=== PATIENT | male | born 1960 | race American Indian/Alaskan Native ===

== ENCOUNTER 2020-02-25 00:31 | Emergency (ER) | payer OTHER, SELFPAY ==
--- NOTE | ~2020-02-25 | XR_ITS ---
XR chest 2V DATE: 02/25/2020 01:48 INDICATION: Abdominal pain TECHNIQUE: 2 views COMPARISON: two-view chest FINDINGS: Low lung volumes with bibasilar atelectasis. Normal heart size. No hilar or mediastinal enlargement. No pleural effusion or pulmonary vascular con gestion or pneumothorax. IMPRESSION: Mild bibasilar atelectasis Reviewed, dictated and finalized at location A. IMPRESSION: Mild bibasilar atelectasis
--- NOTE | ~2020-02-25 | CT_ITS ---
EXAMINATION: CT abdomen pelvis w con DATE: 02/25/2020 01:49 INDICATION: Mid upper abdominal pain for 5 hours TECHNIQUE: Computed tomography (CT) of the abdomen and pelvis was performed with 100 cc Omnipaque 350 intravenous contrast. Automated exposure control and iterative reconstruction technique were employe d. Exam dose: 705.72 mGy-cm total exam DLP. COMPARISON: None. FINDINGS: There is mild discoid atelectasis in the lung bases. Normal heart size. No pericardial or p leural effusion. There is a small hepatic dome cyst. The liver, gallbladder, bile ducts, pancreas, pancreatic duct, sp wilmar, and adrenal glands and kidneys are otherwise unremarkable. Normal caliber of the abdominal aort a. No intraperitoneal or retroperitoneal or pelvic mass lesion or adenopathy or ascites. There is mil d to moderate prostate enlargement and mild prostate calcification. The urinary bladder is unremarkab le. There is nonspecific mild small bowel dilatation up to 3.4 cm, with numerous small bowel air-fluid le vels. There is fluid distention and air-fluid level of the stomach. Differential diagnosis includes s mall bowel obstruction and adynamic ileus, enteritis. Normal appendix. No intraperitoneal free air. Small fat-containing umbilical hernia. Included skeletal structures are unremarkable. No suspicious osteolytic or osteoblastic lesion. There is mild degenerative change of the thoracic and lumbar spine. IMPRESSION: Mild small bowel dilatation and air-fluid level; definitive diagnosis includes adynamic ileus, enteritis, small bowel obstruction Reviewed, dictated and finalized at Location A. Reviewed, dictated and finalized at location A. IMPRESSION: Mild small bowel dilatation and air-fluid level; definitive diagno sis includes adynamic ileus, enteritis, small bowel obstruction
[2020-02-25] MEDS: ONDANSETRON INJ 4 MG/2 ML VIAL IV PUSH (00:35)
[2020-02-25] MEDS: MORPHINE SULFATE 4 MG/ML INJ IV PUSH (00:45)
--- NOTE | 2020-02-25 00:46 | ECG_ITS ---
Measurements Intervals [place] Rate: 61 P: 32 MS: 153 QRS: 64 QRSD: 90 T: 57 QT: 404 QTc: 408 Interpretive Statements SINUS RHYTHM BASELINE ARTIFACT- I, II, AVR, AVL, AVF, V1, V3 NORMAL ECG Electronically Signed On 02-26-2020 7:23:41 CDT by Elpidio Gilbert D.O.
[2020-02-25 00:53] LABS: Basophils Absolute Auto 0.04 K/mm3 (0.00-0.10); Basophils Percent Auto 0.4 % (0.0-1.0); Eosinophils Absolute Auto 0.32 K/mm3 (0.02-0.50); Eosinophils Percent Auto 3.3 % (1.0-6.0); Hematocrit 48.5 % (40.0-54.0); Hemoglobin 16.9 g/dL (14.0-18.0); Immature Granulocyte Absolute 0.03 K/mm3 (0.00-0.00); Immature Granulocyte Percent A 0.3 % (0.0-0.0); Lymphocytes Absolute Auto 2.16 K/mm3 (1.10-4.50); Lymphocytes Percent Auto 22.6 % (18.0-42.0); Mean Corpuscular HGB Conc 34.8 g/dL (32.0-36.0); Mean Corpuscular Hemoglobin 30.4 pg (27.0-31.0); Mean Corpuscular Volume 87.2 fL (78.0-102.0); Mean Platelet Volume 9.1 fl (8.7-11.0); Monocytes Absolute Auto 0.64 K/mm3 (0.10-0.90); Monocytes Percent Auto 6.7 % (2.0-11.0); Neutrophils Absolute Auto 6.4 K/mm3 (1.7-7.2); Neutrophils Percent Auto 66.7 % (50.0-70.0); Platelet Count Result 228 K/mm3 (150-420); Red Blood Count 5.56 M/mm3 (4.70-6.10); Red Cell Distribution Width 12.9 % (11.6-14.4); White Blood Count 9.6 K/mm3 (4.8-10.8)
--- NOTE | 2020-02-25 01:01 | ED.GENADULT ---
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 the patient was walking it did go home he thought initially the pain would resolve but it did intensify. Patient denies chest pain, no shortness of breath, no fever or chills, there is no diarrhea constipation. Patient did have nausea with an episode of vomiting. Patient currently has some not taking any medication, does have a past medical history of gastritis and had endoscopy performed approximately 1 year ago. Onset (ago): hour(s) Location: abdomen Radiation: back Severity: severe Severity scale (1-10): >10 Quality: aching and constant Pain Consistency: constant Relieving factors: none Exacerbating factors: none Associated symptoms: nausea/vomiting Treatments prior to arrival: none Related Data Home Medications Medication Instructions Recorded Confirmed No Home Medications 02/25/20 02/25/20 Allergies Allergy/AdvReac Type Severity Reaction Status Date / Time Sulfa (Sulfonamide AdvReac Unknown Verified 02/25/20 00:55 Antibiotics) Review of Systems Review of Systems: All systems reviewed & are unremarkable except as noted in HPI and below PMFSH Past Medical History Medical History Gastritis Exam Const: General: ill appearing Nutritional Appearance: well nourished HENMT: Head: normal to inspection Eyes: Conjunctivae: conjunctivae normal Pupils: Equal, round and reactive pupils present Neck: Neck: normal visual inspection Chest: Chest palpation & inspection: normal inspection of the chest Resp: Effort & Inspection: normal respiratory effort Auscultation: clear to auscultation bilaterally Cardio: Rate: regular rate Rhythm: regular rhythm GI: GI Palp: Yes Tenderness to palpation present (GI) and Yes Guarding due to palpation present (GI) Percussion: Yes normal to percussion Auscultation: Hyperactive bowel sounds present : Testes: Testes normal Skin: General skin exam: normal color Rashes: no rashes Neuro: General: patient oriented x3, moves all extremities, no meningeal signs and no focal motor deficits Extrem: General: normal to inspection and edema Psych: Appearance: grossly normal Mental Status: mental status grossly normal Thought content: Yes Normal thought content present Course Course Emergency Course: reassessment of patient's currently is comfortable pain level has some diminished to a 3/10 currently resting comfortably with mild abdominal discomfort with no nausea vomiting at this time. Patient is resting comfortably with some abdominal pain diminished to 3/10 with no nausea or vomiting and patient declined NG tube at this time. Transfer Transfered to: [facility] Transfer rationale: Higher level of acuity Accepting physician: Dr. Reyna Medical Decision Making Medical Records Medical records reviewed: Yes I reviewed the patient's medical records. Lab Data Lab results reviewed: Yes I reviewed the patient's lab results. Result diagrams: 02/25/20 00:46 02/25/20 00:46 Labs: Lab Results 02/25/20 02/25/20 Range/Units 00:46 00:46 WBC 9.6 (4.8-10.8) K/mm3 RBC 5.56 (4.70-6.10) M/mm3 Hgb 16.9 (14.0-18.0) g/dL Hct 48.5 (40.0-54.0) % MCV 87.2 (78.0-102.0) fL MCH 30.4 (27.0-31.0) pg MCHC 34.8 (32.0-36.0) g/dL RDW 12.9 (11.6-14.4) % Plt Count 228 (150-420) K/mm3 MPV 9.1 (8.7-11.0) fl Immature Gran % (Auto) 0.3 H (0.0-0.0) % Neut % (Auto) 66.7 (50.0-70.0) % Lymph % (Auto) 22.6 (18.0-42.0) % Thayer % (Auto) 6.7 (2.0-11.0) % Eos % (Auto) 3.3 (1.0-6.0) % Baso % (Auto) 0.4
[2020-02-25 01:09] LABS: Alanine Aminotransferase 33 U/L (16-63); Albumin Level 4.5 g/dL (3.4-5.0); Alkaline Phosphatase 64 U/L (46-116); Anion Gap 14.2 mmol/L (7-16); Aspartate Amino Transferase 29 U/L (15-37); Bilirubin,Total 0.8 mg/dL (0.00-1.00); Blood Urea Nitrogen 15 mg/dL (7-18); Calcium 9.7 mg/dL (8.5-10.1); Carbon Dioxide 32 mmol/L (21-32); Chloride 100 mmol/L (98-108); Estimated Glomerular Filt Rate > 60; Glucose 150 mg/dL (70-99); Lipase 95 U/L (73-393); Osmolality Calculated 297 mOsm/kg (285-295); Potassium 4.2 mmol/L (3.5-5.1); Sodium 142 mmol/L (136-145); Total Protein 7.8 g/dL (6.4-8.2)
[2020-02-25 01:10] LABS: Troponin I < 0.02 ng/mL (0.00-0.056)
[2020-02-25] MEDS: PANTOPRAZOLE SODIUM IV 40 MG VIAL IV PUSH (01:10)
[2020-02-25] MEDS: HYDROMORPHONE HCL 2 MG/ML VIAL IV PUSH (01:16)
[2020-02-25 01:19] VITALS: BP 109/65; PULSE 75; RESP 18; TEMP 36.5; O2SAT 97
[2020-02-25 01:36] LABS: Lactic Acid 2.8 mmol/L (0.4-2.0)
--- NOTE | 2020-02-25 01:48 | PC.NURSE ---
ERP DISCUSSING PLAN OF CARE WITH PATIENT. 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 AWAITING CALL BACK
[2020-02-25 01:57] VITALS: BP 132/76; PULSE 63; RESP 20; TEMP 36.5; O2SAT 98
[2020-02-25] MEDS: SODIUM CHLORIDE 0.9% IV 1,000 ML 150 ML IV CONT (02:10)
--- NOTE | 2020-02-25 02:26 | PC.NURSE ---
ERP SPEAKING WITH DR LOPEZ AT [facility].
--- NOTE | 2020-02-25 02:29 | PC.NURSE ---
PT ACCEPTED PER DR LOPEZ, AWAITING BED PLACEMENT
[2020-02-25 02:48] VITALS: BP 115/61; PULSE 60; RESP 20; TEMP 36.5; O2SAT 94
--- NOTE | 2020-02-25 02:54 | PC.NURSE ---
CALL TO [facility], UNAVAILABLE FOR TRANSFER DUE TO NO CREW AVAILABLE, PER ARLENE. CALL TO [facility] AWAITING ARRIVAL.
[2020-02-25 03:12] LABS: Add Urine Microscopic? NO; Appearance Urine Clear (Clear); Bilirubin Urine Negative (Negative); Blood Urine Negative (Negative); Color Urine Yellow (Yellow); Glucose Urine UA Negative (Negative); Ketones Urine Negative (Negative); Leukocyte Esterase Ur Negative LEU/UL (Negative); Nitrate Urine Negative (Negative); Protein Urine Negative (Negative); Specific Grav Ur <= 1.005 (1.010-1.020); Urobilinogen Urine 0.2 mg/dL (0.2-1.0); pH Urine >=9.0 (5.0-8.0)
--- NOTE | 2020-02-25 03:26 | PCDIET ---
0315 [facility] HERE , REPORT TO Gerry AND MIGUEL. PT LOADED TO EMS COT, MASK APPLIED, PT REMAINS ALERT AND STABLE.
== END 2020-02-25 03:27 | disposition short-term general hospital (02) ==
PROVIDERS: Emergency Provider Emergency Medicine; PCP Internal Medicine
DX: K56.609 Unspecified intestinal obstruction, unspecified as to partial versus complete obstruction (principal)
CPT/HCPCS: 36415; 71046; 74177; 80053; 81003; 83605; 83690; 84484; 85025; 93005; 96365; 96375; 99284; 99285; C9113; J0696; J1170; J2270; J2405; J7030; Q9965

== ENCOUNTER 2020-02-25 03:58 | Inpatient (IN) | payer OTHER, SELFPAY ==
--- NOTE | ~2020-02-25 | XR_ITS ---
XR abdomen/kub 1V DATE: 02/25/2020 08:31 INDICATION: Abdominal pain. Bowel obstruction. TECHNIQUE: Supine AP views on 02/25/2020 0817 hours COMPARISON: 02/25/2020 CT abdomen pelvis FINDINGS: No abnormal distention of the small or large bowel is noted. There is no evacuation of the bowel. No visceromegaly is evident. No significant abnormal calcification. Radiopaque contrast materi al is noted within the urinary bladder. Minimal degenerative changes of the thoracic and lumbar spine. IMPRESSION: Nonspecific abdomen; no bowel obstruction evident Reviewed, dictated and finalized at Location A. Reviewed, dictated and finalized at location A.
--- NOTE | 2020-02-25 04:26 | ADMGEN ---
This patient, Yenifer Domínguez, was admitted to 2 Medical Room 244-. Patient/family oriented to hospital policies and general routines including ID bracelet, bed and alarms, visiting hours, pain management, procedures, bathroom and other care routines, personal items, smoking policy, room service/diet, and visiting hours. Valuables list has been completed. Information on how to activate the Rapid Response Team has been discussed. Patient/Family are encouraged to report perceived risks to care and to ask questions if they do not understand what they are told or what they should do. Pt came to floor at 0400. Placed call to Dr. Reyna to receive his admission orders
[2020-02-25 04:31] VITALS: BP 117/88; PULSE 54; RESP 20; TEMP 36.4; O2SAT 98
[2020-02-25] MEDS: SODIUM CHLORIDE 0.9% IV 1,000 ML 150 ML IV CONT ×2 (05:54→12:10)
--- NOTE | 2020-02-25 09:32 | PM.IMHP ---
H&P: HPI History of Present Illness Chief complaint: small bowel obstruction Narrative: Yenifer Domínguez is a 59 year old male that presented to the emergency department complaining of severe abdominal pain. Patient reports the pain was diffuse in nature, located more in the epigastric and right abdomen. Patient reports pain started out as moderate, however progressed to severe throughout the day yesterday. Patient reports associated distention, nausea, and bilious emesis. Patient reports he had a normal bowel movement yesterday morning. Patient denies any previous episodes, denies any past medical or surgical history. Patient had EGD and colonoscopy 6 months ago that showed some gastritis. Review of Systems Constitutional: Constitutional: Denies anorexia, Denies chills, Denies fatigue, Denies headache(s), Denies malaise, Denies poor appetite, Denies weight gain and Denies weight loss Eyes: Eyes: Denies change in vision ENT: Denies headache(s), Denies hearing loss and Denies sore throat Cardiovascular: Cardiovascular: Denies chest pain, Denies palpitations and Denies dyspnea Respiratory: Respiratory: Denies cough and Denies dyspnea Gastrointestinal: Gastrointestinal: Reports abdominal pain, Reports bloating, Denies change in stool character, Denies constipation, Denies diarrhea, Reports nausea and Reports vomiting Genitourinary: Genitourinary: Denies dysuria, Denies urinary frequency and Denies urinary urgency Musculoskeletal: Musculoskeletal: Reports no additional musculoskeletal complaints Integumentary/Breasts: Skin/Breast: Denies pruritus, Denies lesions and Denies wounds Neurologic: Denies confusion and Denies headache(s) Psychiatric: Psychiatric: Reports no additional psychiatric complaints and Denies confusion Endocrine: Endocrine: Reports no additional endocrine complaints, Denies fatigue and Denies palpitations Hematologic/Lymphatic: Hematologic/Lymphatic: Reports no additional hematologic/lymphatic complaints Allergic/Immunologic: Allergic/Immunologic: Reports no additional allergic/immunologic complaints [facility] Social History Social History (Updated 02/25/20 @ 05:05 by Rita Rodriguez RN) Smoking status: Never smoker Alcohol intake: unknown Drinks per week: 1 Substance use: current Substance use type: does not use Gender identity (if verbalized by the patient): Male Spiritual care concerns: No Agree to blood products: Yes Meds Home Medications and Allergies Home Medications Medication Instructions Recorded Confirmed Type No Home Medications 02/25/20 02/25/20 History Allergies Allergy/AdvReac Type Severity Reaction Status Date / Time Sulfa (Sulfonamide AdvReac Unknown Verified 02/25/20 00:55 Antibiotics) Vital Signs Vital Signs - 24 hr 02/25/20 04:31 Temperature 36.4 C L Pulse Rate 54 L Respiratory Rate 20 Blood Pressure 117/88 Pulse Oximetry 98 Exam Const: General: cooperative, healthy appearing, no acute distress and well developed; No confusion Orientation/consciousness: patient oriented x3 and No confusion HENMT: Head: normal to inspection, normocephalic and atraumatic Mouth: Yes Normal oral and palatal mucosa present and Yes moist mucous membranes Teeth and gingiva: dentition normal Eyes: Conjunctivae: conjunctivae normal Pupils: Equal, round and reactive pupils present EOM: EOMs intact bilaterally Neck: Neck: normal visual inspection, full ROM, no lymphadenopathy, trachea midline and supple Lymphatic: no lymphadenopathy noted Chest: Chest palpation & inspection: normal inspection of the chest Resp: Effort & Inspection: normal respiratory effort Auscultation: clear to auscultation bilaterally Cardio: Jugular venous distension: no JVD Rate: regular rate Rhythm: regular rhythm Heart sounds: S1 normal heart sound present and S2 normal heart sound present Peripheral pulses: Peripheral pulses 2+ throughout GI: Inspection: normal to inspectio
[2020-02-25 14:00] VITALS: BP 101/57; PULSE 57; RESP 18; TEMP 36.7; O2SAT 98
[2020-02-25 15:14] VITALS: BMI 31.5
[2020-02-25] MEDS: PANTOPRAZOLE 40 MG TABLET PO (18:45)
--- NOTE | 2020-02-27 11:12 | PM.DS ---
DS: Diagnosis Discharge Diagnosis (1) Enteritis: Code(s): K52.9 - Noninfective gastroenteritis and colitis, unspecified Status: Acute Assessment and Plan: exam benign, anu diet, cont bland diet at home, followup c GI and primary physician, f/u c me in 2 wks (2) Gastritis: Code(s): K29.70 - Gastritis, unspecified, without bleeding Status: Chronic Assessment and Plan: cont PPI as per GI, will likely need rescope, avoid caffeine, NSaids DS: Summary Hospital Course Reason for hospitalization: enteritis, SBO Hospital Course: Pt presented to hospital c/o severe, diffuse abd pain over last 6 hours. Pt reports pain was progressively worsening. Pt reports associated N/V, obstipation. Pt had BM in at the morning, but no further bowel fxn. Pt denies any other c/o. CT at ED showed poss SBO so pt transferred here and admitted. Pt reports pain slowly resolved and had normal bowel fxn the next day. Pt was started on diet which he anu s issue. Pt did not require any further analgesia. Pt received PPI in hospital and advised to cont upon dc. Status at Discharge Functional status at discharge: independent ambulation Overall status at discharge: patient is back to baseline Time Spent with Patient Time attestation: Total time spent providing and/or coordinating discharge services: 20 minutes Time spent: Less than 30 minutes Exam Const: General: no acute distress Resp: Auscultation: clear to auscultation bilaterally Cardio: Rate: regular rate Rhythm: regular rhythm GI: Inspection: non-distended GI Palp: Yes Soft to palpation, No Tenderness to palpation present (GI), No Guarding due to palpation present (GI) and No Hernia present DS: Data Data Completed and Pending Completed studies during hospitalization: CT scan and subsequent AXR reviewed c radiologist Discharge Plan Discharge Attending physician on discharge: Linda Reyna Discharging Clinician: Linda Reyna Anticipated Discharge Date/Time: 02/25/20 18:15 Patient Disposition: Home, Self-Care Activity: as tolerated Diet: as tolerated Discharge Instructions: stay on bland diet, PPI Patient Instructions: Antibiotic Form, Pain Management (GEN) Stand Alone Forms: General Discharge Information Follow-up/Referrals: Linda Reyna MD [Physician] - 2 Weeks Discharge Medications: No Action No Home Medications RF: 0 Date of admission: 02/25/20 03:58 Primary Care Provider: Mynor Marroquin Admitting Provider: Linda Reyna Discharge Date/Time: 02/25/20 18:54 Attending physician on admission: Linda Reyna Condition: Stable Quality VTE Prophylaxis VTE prophylaxis: mechanical ordered
== END 2020-02-25 18:54 | disposition home or self-care (01) | DRG 392 ==
PROVIDERS: Admitting Provider Surgery; PCP Internal Medicine; Visit Provider Surgery
DX: K52.9 Noninfective gastroenteritis and colitis, unspecified (principal); K29.50 Unspecified chronic gastritis without bleeding
CPT/HCPCS: 74018; A9270; J7030

== ENCOUNTER 2020-05-13 11:48 | Outpatient (CLI) | payer OTHER, SELFPAY ==
--- NOTE | ~2020-05-13 | XR_ITS ---
XR_CERV2-3V_CR DATE: 05/13/2020 12:22 INDICATION: Neck pain radiating down left arm, shoulder following lifting injury 2 months ago TECHNIQUE: AP, open-mouth, lateral views COMPARISON: None FINDINGS: There is reversal of cervical curvature. There is moderate loss of interspace height and mild spurring at C5-6 and C6-7. There is minimal anterolisthesis at C4-5. There is no fracture or dislocation or locked facet or prevertebral soft tissue swelling. IMPRESSION: Reversal cervical curvature Minimal anterolisthesis at C4-5 Moderate degenerative disc disease at C5-6 and C6-7 Reviewed, dictated and finalized at Location A. Reviewed, dictated and finalized at location A.
--- NOTE | ~2020-05-13 | XR_ITS ---
XR shoulder LT min 2V DATE: 05/13/2020 12:22 INDICATION: Neck pain radiating to left arm and left shoulder; lifting injury 2 months ago TECHNIQUE: 4 views COMPARISON: None FINDINGS: No fracture or dislocation, periosteal reaction or bone destruction or abnormal left should er soft tissue calcification. IMPRESSION: Negative Reviewed, dictated and finalized at location A. IMPRESSION: Negative
== END 2020-05-13 11:49 | disposition home or self-care (01) ==
PROVIDERS: PCP Internal Medicine; Visit Provider Internal Medicine
DX: M54.2 Cervicalgia (principal); M25.512 Pain in left shoulder
CPT/HCPCS: 72040; 73030

== ENCOUNTER 2020-05-14 16:50 | Outpatient (RCR) | payer OTHER, SELFPAY ==
--- NOTE | 2020-05-21 21:11 | PTOPEVAL ---
Thank you for referring Yenifer Domínguez to [facility]. Please review, sign, date and return this plan of care LUCIUS. I agree with and certify that the following plan of care is medically necessary. Referring Physician Date Admitting Provider: Attending Provider: Mynor Marroquin MD Referring Provider: *PT Outpatient Evaluation Start: 05/14/20 16:57 Freq: Status: Active Protocol: Document 05/14/20 17:00 [facility] (Rec: 05/21/20 21:03 [facility] ANGELINE-[id number]) Therapy Assessment Status Assessment Status Assessment Status Evaluation Outpatient Past Medical History Neurological History Hx Neurological Disorders No Significant History Cardiovascular History Hx Cardiac Disorders No Significant History Respiratory History Hx Respiratory Disorders No Significant History Gastrointestinal History Hx Ulcer Yes Hx Other Gastrointestinal Disorders Yes: gastritis Genitourinary History Hx Genitourinary Disorders No Significant History Musculoskeletal History Hx Orthopedic Surgery Yes: LEFT ANKLE WITH PLATE Hematological History Hx Hematological Disorders No Significant History Endocrine History Hx Endocrine Disorders No Significant History HEENT History Hx HEENT Disorders No Significant History Integumentary History Hx Skin Disorders No Significant History Reproductive History Hx Reproductive Disorders No Significant History Psychosocial History Hx Psychiatric Disorders No Significant History Pain History History of Any Previous or Ongoing No Significant History Instance of Pain Anesthesia History Hx Anesthesia Reactions No Significant History Evaluation Information Problem Diagnosis L shoulder pain Subjective Information patient reports he injured his Query Text:As Reported By Patient/ L shoulder over a month ago Family while working on his lawn. he reports his mower was stuck in the yard several times. he reports he was pulling hard to get his mower out, and days later began noticing pain and tightness in the L shoulder. he reports he has tried no medications as of this date. he reports he is having difficulty reaching behind his back. he reports he is also having difficulty sleeping at night/staying asleep due to pain. Prior Level of Function Comments Additional Prior Level of Function prior to injury, no Comments
== END 2020-08-12 23:59 | disposition home or self-care (01) ==
LOC: CHSPT 16:50
PROVIDERS: PCP Internal Medicine; Visit Provider Internal Medicine
DX: M25.512 Pain in left shoulder (principal); M54.2 Cervicalgia
CPT/HCPCS: 99199

== ENCOUNTER 2020-07-16 15:42 | Outpatient (CLI) | payer OTHER, SELFPAY ==
--- NOTE | ~2020-07-16 | MR_ITS ---
EXAMINATION: MR brain/brain stem wo con DATE: 07/16/2020 16:42 INDICATION: 3 days of dizziness, vertigo and ataxia. TECHNIQUE: Magnetic resonance imaging (MRI) of the brain and brainstem was performed without intraven ous contrast. Sequences included sagittal and axial T1-weighted SE, axial diffusion-weighted FS SE, a xial T2*-weighted GRE, axial T2-weighted FLAIR, and axial T2-weighted FSE. Postcontrast axial and cor onal T1-weighted SE was obtained. Apparent diffusion coefficient (ADC) maps were created. COMPARISON: None. FINDINGS: There are no areas of restricted diffusion to suggest acute infarction. No intracranial hemorrhage or abnormal intracranial mass lesion. Few tiny scattered foci of nonspecific increased T2-weighted sign al intensity in the cerebral white matter, predominantly involving the deep and periventricular white matter which is within normal limits for age. There are no intraparenchymal signal abnormalities see n on the other pulse sequences. The ventricles are symmetric and normal in size. There are no abnorma l extra-axial fluid collections. Flow voids are seen in the cerebral arteries on the T2-weighted sequ ences consistent with their expected patency. Mild mucoperiosteal thickening the bilateral ethmoid si nuses and small mucous retention cyst along the floor of the right maxillary sinus. No evident fluid in the mastoid air cells or middle ear cavities. Visualized orbits and soft tissues are unremarkable. IMPRESSION: 1. Normal for age brain with no acute intracranial process. Reviewed, dictated and finalized at location A.
== END 2020-07-16 15:43 | disposition home or self-care (01) ==
PROVIDERS: PCP Internal Medicine; Visit Provider Internal Medicine
DX: R27.0 Ataxia, unspecified (principal)
CPT/HCPCS: 70551

== ENCOUNTER 2021-02-23 20:05 | Outpatient (CLI) | payer OTHER, SELFPAY ==
--- NOTE | ~2021-02-23 | XR_ITS ---
EXAMINATION: XR foot LT min 3V DATE: 02/23/2021 20:30 INDICATION: Left foot injury. Left great toe pain. TECHNIQUE: 5 views of left foot were obtained. COMPARISON: None. FINDINGS: There is a comminuted intra-articular fracture of first distal phalanx. There is up to 1 mm step-off at the articular surface. There is mild osteoarthritis of first metatarsophalangeal joint a nd some of the midfoot joints. There is plate and screw fixation of distal femur. There are enthesoph ytes at the posterior and plantar aspects of calcaneal tuberosity. IMPRESSION: 1. Comminuted fracture of first distal phalanx. Reviewed, dictated and finalized at location A.
== END 2021-02-23 20:06 | disposition home or self-care (01) ==
LOC: CHSIMG 20:09
PROVIDERS: PCP Internal Medicine; Visit Provider Internal Medicine
DX: S99.922A Unspecified injury of left foot, initial encounter (principal)
CPT/HCPCS: 73630

== ENCOUNTER 2021-03-02 17:15 | Outpatient (CLI) | payer OTHER, SELFPAY ==
--- NOTE | ~2021-03-02 | XR_ITS ---
EXAMINATION: XR foot LT min 3V DATE: 03/02/2021 17:59 INDICATION: Left foot pain, first toe fracture follow-up TECHNIQUE: Dorsoplantar, lateral, and 2 oblique views of the left foot were obtained. A lateral view of the first toe is also obtained. COMPARISON: 02/23/2021 FINDINGS: Again seen is a comminuted intra-articular fracture of the first distal phalanx. A dorsal f racture fragment demonstrates minimal dorsal subluxation and proximal retraction on the lateral view. No appreciable calcified callus has developed. There is soft tissue swelling of the first toe. Mild osteoarthritis is present at the first metatarsophalangeal joint. Dorsal and plantar calcaneal enthes ophytes are noted. Plate and screw fixation of the distal fibula is again noted. IMPRESSION: 1. Comminuted intra-articular fracture of the first distal phalanx without significant interval youssef e. Reviewed, dictated and finalized at location A. IMPRESSION: 1. Comminuted intra-articular fracture of the first distal phalanx without sign ificant interval change.
== END 2021-03-02 17:16 | disposition home or self-care (01) ==
LOC: CHSIMG 17:18
PROVIDERS: PCP Internal Medicine; Visit Provider Orthopaedic Surgery
DX: M79.672 Pain in left foot (principal)
CPT/HCPCS: 73630

== ENCOUNTER 2021-03-16 17:53 | Outpatient (CLI) | payer OTHER, SELFPAY ==
--- NOTE | ~2021-03-16 | XR_ITS ---
XR foot LT min 3V 03/16/2021 19:14 Indication: Left foot pain Procedure: 5 views of the left foot Comparison: Comparison to multiple prior studies sequentially, with oldest reviewed study dated 01/2012. Findings: There is a distal fibular sideplate and screws. There is a healing fracture of the left fir st distal phalanx. The fracture line is less distinct than on prior examination. A dorsal fragment de monstrates mild dorsal subluxation on the lateral view. There is mild soft tissue swelling. Impression: 1: Stable alignment of healing comminuted intra-articular fracture left first distal phalanx. Reviewed, dictated and finalized at location A. Impression: 1: Stable alignment of healing comminuted intra-articular fracture left first d istal phalanx.
== END 2021-03-16 17:54 | disposition home or self-care (01) ==
LOC: CHSIMG 17:57
PROVIDERS: PCP Internal Medicine; Visit Provider Orthopaedic Surgery
DX: M79.672 Pain in left foot (principal)
CPT/HCPCS: 73630

== ENCOUNTER 2021-09-28 09:23 | Outpatient (CLI) | payer OTHER, SELFPAY ==
[2021-09-28 10:47] LABS: SARS-CoV-2 RNA PCR Negative (Negative)
== END 2021-09-28 09:24 | disposition home or self-care (01) ==
PROVIDERS: PCP Internal Medicine; Visit Provider Internal Medicine
DX: Z20.822 Contact with and (suspected) exposure to COVID-19 (principal)
CPT/HCPCS: C9803; U0003; U0005

== ENCOUNTER 2023-01-01 11:23 | Outpatient (CLI) | payer BC, SELFPAY ==
--- NOTE | ~2023-01-01 | US_ITS ---
EXAMINATION: US retroperitoneal comp DATE: 01/01/2023 12:01 INDICATION: Left flank pain. TECHNIQUE: Multiple ultrasound grayscale images of the kidneys were obtained. COMPARISON: CT abdomen and pelvis 02/25/2020 FINDINGS: The right kidney measures 10.7 x 5.3 x 4.6 cm. The left kidney measures 11.2 x 6.5 x 4.7 cm. The kidn eys demonstrate normal parenchymal echogenicity. There is no hydronephrosis. The bladder is normal. T he prostate is mildly enlarged. IMPRESSION: 1. Normal kidneys. No hydronephrosis. 2. Mildly enlarged prostate. Reviewed, dictated and finalized at location A. RAMMER
--- NOTE | ~2023-01-01 | US_ITS ---
EXAMINATION: US scrotum doppler DATE: 01/01/2023 11:59 INDICATION: Left flank pain radiating to the scrotum. TECHNIQUE: Grayscale and Doppler ultrasound images of the testes were obtained. COMPARISON: None. FINDINGS: The right testis measures 4.2 x 3.5 x 2.4 cm. The left testis measures 4.3 x 3.0 x 2.6 cm. There is normal vascular flow to both testes. The right epididymis is normal with normal vascular connie w. The left epididymis demonstrates a 2.9 cm cyst. There is no varicocele or hydrocele. IMPRESSION: 1. 2.9 cm benign cyst in the left epididymis. Reviewed, dictated and finalized at location A. [employer]
== END 2023-01-01 11:24 | disposition home or self-care (01) ==
PROVIDERS: PCP Internal Medicine; Visit Provider Internal Medicine
DX: R10.9 Unspecified abdominal pain (principal); N50.3 Cyst of epididymis; N40.0 Benign prostatic hyperplasia without lower urinary tract symptoms
CPT/HCPCS: 76770; 76870; 93976

== ENCOUNTER 2024-05-26 11:32 | Outpatient (CLI) | payer BC, SELFPAY ==
--- NOTE | ~2024-05-26 | XR_ITS ---
XR chest 2V Ordering provider: Yenifer Domínguez MD History: 63 years Male with . cough/dyspnea/wheezing x1 month . Comparison: February 25, 2020 FINDINGS: MEDIASTINUM: The cardiac silhouette is not enlarged. LUNGS: No infiltrates, effusions or pneumothorax. OTHER: No free air under the diaphragm. Degenerative changes of the spine. IMPRESSION: No acute cardiopulmonary pathology. Reviewed, dictated and finalized at location A.
[2024-05-26 12:15] LABS: Hematocrit 46.6 % (40.0-54.0); Hemoglobin 15.8 g/dL (14.0-18.0); Mean Corpuscular HGB Conc 33.9 g/dL (32-36); Mean Corpuscular Hemoglobin 29.8 pg (27.0-31.0); Mean Corpuscular Volume 87.9 fL (78.0-102.0); Mean Platelet Volume 9.1 fl (8.7-11.0); Platelet Count Result 218 K/mm3 (150-420); Red Cell Distribution Width 13.6 % (11.6-14.4); White Blood Count 4.7 K/mm3 (4.8-10.8)
[2024-05-26 12:31] LABS: D Dimer 0.26 mg/L (0.19-0.50)
[2024-05-26 13:03] LABS: Alanine Aminotransferase 35 U/L (16-63); Albumin Level 4.1 g/dL (3.4-5.0); Alkaline Phosphatase 56 U/L (46-116); Anion Gap 7 mmol/L (4-12); Aspartate Amino Transferase 24 U/L (15-37); Bilirubin,Total 0.7 mg/dL (0.00-1.00); Blood Urea Nitrogen 10 mg/dL (7-18); Calcium 9.3 mg/dL (8.5-10.1); Carbon Dioxide 29 mmol/L (21-32); Chloride 103 mmol/L (98-108); Estimated Glomerular Filt Rate > 60; Glucose 99 mg/dL (70-99); NT Pro B Type Natriuretic Pept 40 pg/mL (0-125); Osmolality Calculated 287 mOsm/kg (285-295); Potassium 4.3 mmol/L (3.5-5.1); Sodium 139 mmol/L (136-145); Total Protein 7.3 g/dL (6.4-8.2)
[2024-05-29 16:53] LABS: Immunoglobulin E 199 kU/L (<OR=114)
[2024-05-30 16:54] LABS: NIL 0.02 IU/mL; Quantiferon TB Plus, 1T NEGATIVE (NEGATIVE); TB1-NIL 0.11 IU/mL; TB2-NIL 0.04 IU/mL
== END 2024-05-26 11:33 | disposition home or self-care (01) ==
PROVIDERS: PCP Internal Medicine; Visit Provider Internal Medicine
DX: R05.9 Cough, unspecified (principal); R06.00 Dyspnea, unspecified
CPT/HCPCS: 36415; 71046; 80053; 82785; 83880; 85027; 85380; 86480

== ENCOUNTER 2024-06-12 11:06 | Outpatient (CLI) | payer BC, SELFPAY | END 2024-06-12 11:07 | disposition home or self-care (01) | LOC: CHSCARD 11:07 | PROVIDERS: PCP Internal Medicine; Visit Provider Internal Medicine | DX: R05.9 Cough, unspecified (principal); R06.02 Shortness of breath | CPT/HCPCS: 94060; 94726; 94729 ==

== ENCOUNTER 2024-08-31 17:19 | Outpatient (CLI) | payer BC, SELFPAY ==
--- NOTE | ~2024-08-31 | XR_ITS ---
XR chest 2V Ordering provider: Mynor Marroquin MD History: 64 years Male with . COUGH FOR 4 WEEKS . Comparison: May 26, 2024 FINDINGS: MEDIASTINUM: The cardiac silhouette is not enlarged. LUNGS: No effusions or pneumothorax. Focal opacity seen in the left lower lobe adjacent to the left c ardiac border which may be focal pneumonia. Follow-up advised. Prominent markings seen bilaterally in the lower lobes. OTHER: No free air under the diaphragm. IMPRESSION: Possible focal pneumonia in the left lower lobe adjacent to the cardiac border. Follow-up advised. Reviewed, dictated and finalized at location A.
== END 2024-08-31 17:20 | disposition home or self-care (01) ==
LOC: CHSIMG 17:20
PROVIDERS: PCP Internal Medicine; Visit Provider Internal Medicine
DX: R05.9 Cough, unspecified (principal)
CPT/HCPCS: 71046

== ENCOUNTER 2024-09-25 05:17 | Emergency (ER) | payer BC, SELFPAY ==
[2024-09-25] VITALS (10 sets, daily range): BP systolic 134–150; BP diastolic 83–97; PULSE 51–72; RESP 15–24; TEMP 36.8; O2SAT 93–99
--- NOTE | ~2024-09-25 | XR_ITS ---
Clinical Indication: Epigastric pain PA view of the chest: Comparison: 08/31/2024 Findings: The lungs are clear, without evidence of focal consolidation or pleural effusion. Cardiome diastinal silhouette is within normal limits. Bones and soft tissues are unremarkable. Impression: Normal chest. Reviewed, dictated and finalized at location . COMPLIANCE MANAGER Impression: Normal chest.
--- NOTE | ~2024-09-25 | CT_ITS ---
Non-contrast CT scan of the Abdomen and Pelvis Clinical indication: Abdominal pain Technique: 2.5 mm axial scans were obtained through the abdomen and pelvis without intravenous or or al contrast. Dose reduction technique was used on this scan by utilizing automated exposure control a nd iterative reconstruction technique. The dose-length product (DLP) was 839.38 mGy-cm. Findings: Images through the lung bases reveal no abnormalities. There is no evidence of renal or ureteral calculi. The kidneys and the ureters are nondilated. The liver, spleen, pancreas, gallbladder, and adrenals appear normal. There is no aortic aneurysm. Dilated proximal small bowel is a compatible obstruction. Distal small bowel loops are decompressed. Images through the pelvis were performed. There is no evidence of ascites or lymphadenopathy. Urinary bladder unremarkable. Prostate gland is enlarged. Impression: Small bowel obstruction. Reviewed, dictated and finalized at [facility]. 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
--- NOTE | 2024-09-25 05:19 | ED_ITS ---
HPI - Abdominal Pain General Chief Complaint: Abdominal Pain <Ignacio Morales MD - Last Filed: 09/25/24 07:01> Stated Complaint: ABD Pain <Ignacio Morales MD - Last Filed: 09/25/24 07:01> Time Seen by Provider: 09/25/24 05:19 <Ignacio Morales MD - Last Filed: 09/25/24 07:01> Source: patient <Ignacio Morales MD - Last Filed: 09/25/24 07:01> Mode of arrival: ambulatory <Ignacio Morales MD - Last Filed: 09/25/24 07:01> Limitations: no limitations <Ignacio Morales MD - Last Filed: 09/25/24 07:01> History of Present Illness HPI narrative: Patient is a 64-year-old male with epigastric and left upper quadrant pain for the past 2 days. He has associated nausea. This is similar pain to prior small-bowel obstruction. No prior surgeries. Patient takes no medication for home meds. Last bowel movement was yesterday. <Ignacio Morales MD - Last Filed: 09/25/24 07:01> MD elicited complaint: abdominal pain <Ignacio Morales MD - Last Filed: 09/25/24 07:01> Pertinent past history: other ( Prior small-bowel obstruction without surgical needs) <Ignacio Morales MD - Last Filed: 09/25/24 07:01> Onset (ago): day(s) (2) <Ignacio Morales MD - Last Filed: 09/25/24 07:01> Pain Consistency: constant <Ignacio Morales MD - Last Filed: 09/25/24 07:01> Location: epigastric and LUQ <Ignacio Morales MD - Last Filed: 09/25/24 07:01> Severity: moderate <Ignacio Morales MD - Last Filed: 09/25/24 07:01> Pain scale (0-10): 5 <Ignacio Morales MD - Last Filed: 09/25/24 07:01> Quality: cramping, stabbing and sharp <Ignacio Morales MD - Last Filed: 09/25/24 07:01> Radiation: back <Ignacio Morales MD - Last Filed: 09/25/24 07:01> Migration to: no migration <Ignacio Morales MD - Last Filed: 09/25/24 07:01> Exacerbating factors: nothing <Ignacio Morales MD - Last Filed: 09/25/24 07:01> Relieving factors: nothing <Ignacio Morales MD - Last Filed: 09/25/24 07:01> Context: confirms history of similar episodes <Ignacio Morales MD - Last Filed: 09/25/24 07:01> Associated symptoms: nausea <Ignacio Morales MD - Last Filed: 09/25/24 07:01> Treatments prior to arrival: antacids <Ignacio Morales MD - Last Filed: 09/25/24 07:01> Related Data Home Medications: Home Medications Medication Instructions Recorded Confirmed No Home Medications 02/25/20 09/25/24 <Ignacio Morales MD - Last Filed: 09/25/24 07:01> Allergies/Adverse Reactions: Allergies Allergy/AdvReac Type Severity Reaction Status Date / Time Sulfa (Sulfonamide AdvReac Unknown Verified 03/17/21 08:17 Antibiotics) <Ignacio Morales MD - Last Filed: 09/25/24 07:01> Review of Systems Review of Systems: All systems reviewed & are unremarkable except as noted in HPI and below <Ignacio Morales MD - Last Filed: 09/25/24 07:01> Constitutional: Constitutional: Reports no additional constitutional complaints <Ignacio Morales MD - Last Filed: 09/25/24 07:01> Eyes: Eyes: Reports no additional eye complaints <Ignacio Morales MD - Last Filed: 09/25/24 07:01> ENT: Reports system reviewed and no additional complaints, except as documented <Ignacio Morales MD - Last Filed: 09/25/24 07:01> Cardiovascular: Cardiovascular: Reports no additional cardiovascular complaints <Ignacio Morales MD - Last Filed: 09/25/24 07:01> Respiratory: Respiratory: Reports no additional respiratory complaints <Ignacio Morales MD - Last Filed: 09/25/24 07:01> Gastrointestinal: Gastrointestinal: Reports no additional gastrointestinal complaints <Ignacio Morales MD - Last Filed: 09/25/24 07:01> Genitourinary: Genitourinary: Reports no additional male genitourinary complaints <Ignacio Morales MD - Last Filed: 09/25/24 07:01> Musculoskeletal: Musculoskeletal: Reports no additional musculoskeletal complaints <Ignacio Morales MD - Last Filed: 09/25/24 07:01> Integumentary/Breasts: Skin/Breast: Reports system reviewed and no additional complaints, except as docu <Ignacio Morales MD - Last Filed: 09/25/24 07:01> Neurologic: Reports system reviewed and no additional complaints, except as documented <Ignacio Morales MD - Last Filed: 09/25/24 07:01> Psychiatric: Psychiatric: Reports no additional psychiatric complaints <Ignacio Morales MD - Last Filed: 09/25/24 07:01> Endocrine: Endocrine: Reports no additional endocrine complaints <Ignacio Morales MD - Last Filed: 09/25/24 07:01> Hematologic/Lymphatic: Hematologic/Lymphatic: Reports no additional hematologic/lymphatic complaints <Ignacio Morales MD - Last Filed: 09/25/24 07:01> Allergic/Immunologic: Allergic/Immunologic: Reports no additional all ergic/immunologic complaints <Ignacio Morales MD - Last Filed: 09/25/24 07:01> PMFSH Past Medical History Medical History: Medical History Closed fracture of left great toe Gastritis <Ignacio Morales MD - Last Filed: 09/25/24 07:01> Family History Family History: Family History Mother Diabetes mellitus Hypertension <Ignacio Morales MD - Last Filed: 09/25/24 07:01> Social History Social History: Social History Alcohol intake: unknown Drinks per week: 1 Substance use: current Substance use type: does not use Gender identity (if verbalized by the patient): Male Spiritual care concerns: No Agree to blood products: Yes <Ignacio Morales MD - Last Filed: 09/25/24 07:01> Exam Const: General: healthy appearing <Ignacio Moarles MD - Last Filed: 09/25/24 07:01> Nutritional Appearance: well nourished <Ignacio Morales MD - Last Filed: 09/25/24 07:01> Orientation/consciousness: patient oriented x3 <Ignacio Morales MD - Last Filed: 09/25/24 07:01> Limitations: no limitations <Ignacio Morales MD - Last Filed: 09/25/24 07:01> HENMT: Head: normal to inspection <Ignacio Morales MD - Last Filed: 09/25/24 07:01> Ears: external ears normal <Ignacio Morales MD - Last Filed: 09/25/24 07:01> Face/Nose/Sinus: Normal external nose present <Ignacio Morales MD - Last Filed: 09/25/24 07:01> Eyes: Conjunctivae: conjunctivae normal <Ignacio Morales MD - Last Filed : 09/25/24 07:01> Pupils: Equal, round and reactive pupils present <Ignacio Morales MD - Last Filed: 09/25/24 07:01> EOM: EOMs intact bilaterally <Ignacio Morales MD - Last Filed: 09/25/24 0 7:01> Neck: Neck: normal visual inspection <Ignacio Morales MD - Last Filed: 09/25/24 07:01> Chest: Chest palpation & inspection: normal inspection of the chest <Ignacio Morales MD - Last Filed: 09/25/24 07:01> Resp: Effort & Inspection: normal respiratory effort and not labored <Ignacio Morales MD - Last Filed: 09/25/24 07:01> Auscultation: clear to auscultation bilaterally and no crackles <Ignacio Morales MD - Last Filed: 09/25/24 07:01> Cardio: Rate: regular rate <Ignacio Morales MD - Last Filed: 09/25/24 07:01> Rhythm: regular rhythm <Ignacio Morales MD - Last Filed: 09/25/24 07:01> Heart sounds: no murmurs <Ignacio Morales MD - Last Filed: 09/25/24 07:01> GI: Inspection: non-distended <Ignacio Morales MD - Last Filed: 09/25/24 07:01> GI Palp: Yes Soft to palpation, Yes Tenderness to palpation present (GI) ( epigastric and left upper quadrant), No Guarding due to palpation present (GI), No Rigid due to palpation, No Hernia present, No Palpable mass present and No Re bound tenderness present <Ignacio Morales MD - Last Filed: 09/25/24 07:01> Auscultation: bowels sounds not normal and Hypoactive bowel sounds present <MD Tiffanie Yusuf Last Filed: 09/25/24 07:01> : General: Yes bladder normal to palpation <Ignacio Morales MD - Last Filed: 09/25/24 07:01> Back/Spine/Pelvis: Back: no CVA tenderness <Ignacio Morales MD - Last Filed: 09/25/24 07:01> Skin: General skin exam: normal color <MD Tiffanie Yusuf Last Filed: 09/25/24 07:01> Rashes: no rashes <Ignacio Morales MD - Last Filed: 09/25/24 07:01> Wounds: no wounds <Ignacio Morales MD - Last Filed: 09/25/24 07:01> Neuro: General: patient oriented x3 <Ignacio Morales MD - Last Filed: 07:01> Cranial nerves: Yes Nystagmus not present <Ignacio Morales MD - Last Filed: 09/25/24 07:01> Speech: normal speech <Ignacio Morales MD - Last Filed: 09/25/24 07:01> Gait exam (Neuro): Normal gait present <Ignacio Morales MD - Last Filed: 09/25/24 07:01> Extrem: General: normal to inspection <Ignacio Morales MD - Last Filed: 09/25/24 07:01> Psych: Mental Status: mental status grossly normal <Ignacio Morales MD - Last Filed: 09/25/24 07:01> Affect: normal affect <Ignacio Morales MD - Last Filed: 09/25/24 07:01> Attitude: cooperative <Ignacio Morales MD - Last Filed: 09/25/24 07:01> Course Consultations Consultation #1: patient was accepted for transfer, Dr. Michel, discussed with the [facility] <Jame Pagan MD - Last Filed: 09/25/24 08:36> Date: 09/25/24 <Jame Pagan MD - Last Filed: 09/25/24 08:36> Time: 08:35 <Jame Pagan MD - Last Filed: 09/25/24 08:36> Vital Signs Vital signs: Vital Signs Pulse Rate 72 09/25/24 05:17 Respiratory Rate 18 09/25/24 05:17 Blood Pressure 150/95 H 09/25/24 05:17 Pulse Oximetry 95 09/25/24 05:17 Oxygen Delivery Room Air 09/25/24 05:17 Pulse Rate 72 09/25/24 05:17 Respiratory Rate 18 09/25/24 05:17 Blood Pressure 150/95 H 09/25/24 05:17 Pulse Oximetry 95 09/25/24 05:17 Oxygen Delivery Room Air 09/25/24 05:17 <Ignacio Morales MD - Last Filed: 09/25/24 07:01> Vital Signs Pulse Rate 72 09/25/24 05:17 Respiratory Rate 18 09/25/24 05:17 Blood Pressure 150/95 H 09/25/24 05:17 Pulse Oximetry 95 09/25/24 05:17 Oxygen Delivery Room Air 09/25/24 05:17 Pulse Rate 72 09/25/24 05:17 Respiratory Rate 18 09/25/24 05:17 Blood Pressure 150/95 H 09/25/24 05:17 Pulse Oximetry 95 09/25/24 05:17 Oxygen Delivery Room Air 09/25/24 05:17 <Jame Pagan MD - Last Filed: 09/25/24 08:36> MDM - Abdominal Pain MDM Narrative Medical decision making narrative: patient is a 64-year-old male with epigastric and left upper quadrant pain similar to prior small-bowel obstruction. We will do a GI workup this time. He did not want pain medication. <Ignacio Morales MD - Last Filed: 09/25/24 07:01> Lab Data Attestation: I reviewed the patient's lab results. <Ignacio Morales MD - Last Filed: 09/25/24 07:01> Result diagrams: 09/25/24 05:28 09/25/24 05:28 <Ignacio Morales MD - Last Filed: 09/25/24 07:01> Labs: Lab Results 09/25/24 09/25/24 Range/Units 05:28 05:51 WBC 5.5 (4.8-10.8) K/mm3 RBC 5.08 (4.70-6.10) M/mm3 Hgb 15.2 (14.0-18.0) g/dL Hct 44.3 (40.0-54.0) % MCV 87.2 (78.0-102.0) fL MCH 29.9 (27.0-31.0) pg MCHC 34.3 (32-36) g/dL RDW 13.2 (11.6-14.4) % Plt Count 185 (150-420) K/mm3 MPV 9.0 (8.7-11.0) fl Immature Gran % (Auto) 0.4 H (0.0-0.0) % Neut % (Auto) 61.5 (50.0-70.0) % Lymph % (Auto) 24.5 (18.0-42.0) % Hettinger % (Auto) 8.4 (2.0-11.0) % Eos % (Auto) 4.8 (1.0-6.0) % Baso % (Auto) 0.4 (0.0-1.0) % Lymph # (Auto) 1.34 (1.10-4.50) K/mm3 Hettinger # (Auto) 0.46 (0.10-0.90) K/mm3 Eos # (Auto) 0.26 (0.02-0.50) K/mm3 Baso # (Auto) 0.02 (0.00-0.10) K/mm3 Abs Immat Gran (auto) 0.02 H (0.00-0.00) K/mm3 Absolute Neuts (auto) 3.36 (1.70-7.20) K/mm3 Absolute Nucleated RBC 0.00 (0.00-0.00) K/mm3 Nucleated RBC % 0.0 (0-0.0) % PT 11.3 (9.50-12.1) Seconds INR 1.0 APTT 26.6 (23.9-30.70) Sec Sodium 142 (136-145) mmol/L Potassium 4.1 (3.5-5.1) mmol/L Chloride 105 (98-108) mmol/L Carbon Dioxide 31 (21-32) mmol/L Anion Gap 6 (4-12) mmol/L BUN 9 (7-18) mg/dL Creatinine 0.95 (0.70-1.30) mg/dL Estim Creat Clear Calc 87 ml/min Estimated GFR > 60 (59 - ) Glucose 122 H (70-99) mg/dL Calculated Osmolality 293 (285-295) mOsm/kg Lactic Acid 1.0 (0.4-2.0) mmol/L Calcium 9.5 (8.5-10.1) mg/dL Total Bilirubin 0.9 (0.00-1.00) mg/dL AST 32 (15-37) U/L ALT 36 (16-63) U/L Alkaline Phosphatase 68 (46-116) U/L Troponin I 5.7 (0.00-60.4) ng/L Total Protein 7.3 (6.4-8.2) g/dL Albumin 3.8 (3.4-5.0) g/dL Lipase 33 (16-77) U/L <Ignacio Morales MD - Last Filed: 09/25/24 07:01> Lab Results 09/25/24 09/25/24 Range/Units 05:28 05:51 WBC 5.5 (4.8-10.8) K/mm3 RBC 5.08 (4.70-6.10) M/mm3 Hgb 15.2 (14.0-18.0) g/dL Hct 44.3 (40.0-54.0) % MCV 87.2 (78.0-102.0) fL MCH 29.9 (27.0-31.0) pg MCHC 34.3 (32-36) g/dL RDW 13.2 (11.6-14.4) % Plt Count 185 (150-420) K/mm3 MPV 9.0 (8.7-11.0) fl Immature Gran % (Auto) 0.4 H (0.0-0.0) % Neut % (Auto) 61.5 (50.0-70.0) % Lymph % (Auto) 24.5 (18.0-42.0) % Hettinger % (Auto) 8.4 (2.0-11.0) % Eos % (Auto) 4.8 (1.0-6.0) % Baso % (Auto) 0.4 (0.0-1.0) % Lymph # (Auto) 1.34 (1.10-4.50) K/mm3 Hettinger # (Auto) 0.46 (0.10-0.90) K/mm3 Eos # (Auto) 0.26 (0.02-0.50) K/mm3 Baso # (Auto) 0.02 (0.00-0.10) K/mm3 Abs Immat Gran (auto) 0.02 H (0.00-0.00) K/mm3 Absolute Neuts (auto) 3.36 (1.70-7.20) K/mm3 Absolute Nucleated RBC 0.00 (0.00-0.00) K/mm3 Nucleated RBC % 0.0 (0-0.0) % PT 11.3 (9.50-12.1) Seconds INR 1.0 APTT 26.6 (23.9-30.70) Sec Sodium 142 (136-145) mmol/L Potassium 4.1 (3.5-5.1) mmol/L Chloride 105 (98-108) mmol/L Carbon Dioxide 31 (21-32) mmol/L Anion Gap 6 (4-12) mmol/L BUN 9 (7-18) mg/dL Creatinine 0.95 (0.70-1.30) mg/dL Estim Creat Clear Calc 87 ml/min Estimated GFR > 60 (59 - ) Glucose 122 H (70-99) mg/dL Calculated Osmolality 293 (285-295) mOsm/kg Lactic Acid 1.0 (0.4-2.0) mmol/L Calcium 9.5 (8.5-10.1) mg/dL Total Bilirubin 0.9 (0.00-1.00) mg/dL AST 32 (15-37) U/L ALT 36 (16-63) U/L Alkaline Phosphatase 68 (46-116) U/L Troponin I 5.7 (0.00-60.4) ng/L Total Protein 7.3 (6.4-8.2) g/dL Albumin 3.8 (3.4-5.0) g/dL Lipase 33 (16-77) U/L <Jame Pagan MD - Last Filed: 09/25/24 08:36> Imaging Data Attestation: I personally reviewed and interpreted this imaging study as follows: <Ignacio Morales MD - Last Filed: 09/25/24 07:01> Radiologist's impression: ITS Impressions Abdomen/Pelvis CT 09/25/24 06:02 Impression: Small bowel obstruction. Chest X-Ray 09/25/24 06:46 Impression: Normal chest. <Ignacio Morales MD - Last Filed: 09/25/24 07:01> ITS Impressions Abdomen/Pelvis CT 09/25/24 06:02 Impression: Small bowel obstruction. Chest X-Ray 09/25/24 06:46 Impression: Normal chest. <Jame Pagan MD - Last Filed: 09/25/24 08:36> ECG Data EKG #1: Attestation: I personally reviewed and interpreted this ECG as follows: <Ignacio Morales MD - Last Filed: 09/25/24 07:01> ECG completion date: 09/25/24 <Ignacio Morales MD - Last Filed: 09/25/24 07:01> ECG completion time: 05:37 <Ignacio Morales MD - Last Filed: 09/25/24 07:01> normal rate, sinus rhythm, no ectopy, normal QRS, normal QT, NL axis and no acute changes <Ignacio Morales MD - Last Filed: 09/25/24 07:01> Critical Care Time Critical Care Time Critical Care Time: No <Jame Pagan MD - Last Filed: 09/25/24 08:36> Discharge Plan Discharge Clinical Impression: Small bowel obstruction <Ignacio Morales MD - Last Filed: 09/25/24 07:01> Patient Disposition: Acute Care Hospital <Ignacio Morales MD - Last Filed: 09/25/24 07:01> Condition: Stable <Ignacio Morales MD - Last Filed: 09/25/24 07:01> Prescriptions: No Action No Home Medications <Ignacio Morales MD - Last Filed: 09/25/24 07:01> Follow-up/Referrals: Mynor Marroquin MD [Primary Care Provider] - <Ignacio Morales MD - Last Filed: 09/25/24 07:01> Time of Disposition: 06:20 <Ignacio Morales MD - Last Filed: 09/25/24 07:01> 06:20 <Jame Pagan MD - Last Filed: 09/25/24 08:36>
--- NOTE | 2024-09-25 05:27 | ECG_ITS ---
Test Date: 2024-09-25 05:38:25 Measurements Intervals Bureau Rate: 63 P: 43 TN: 152 QRS: 55 QRSD: 93 T: 55 QT: 421 QTc: 432 Interpretive Statements SINUS RHYTHM BASELINE ARTIFACT- I, II, III, AVR, AVL, V2 NORMAL ECG No previous ECG available for comparison Electronically Signed On 09-25-2024 06:02:55 INTERNAL [employer] by Elpidio Gilbert D.O.
--- NOTE | 2024-09-25 05:33 | PC.NURSE ---
orly granado, at the bedside completing ekg
--- NOTE | 2024-09-25 05:38 | PC.NURSE ---
anastasiya transported to ct via stretcher
[2024-09-25 05:41] LABS: Basophils Absolute Auto 0.02 K/mm3 (0.00-0.10); Basophils Percent Auto 0.4 % (0.0-1.0); Eosinophils Absolute Auto 0.26 K/mm3 (0.02-0.50); Eosinophils Percent Auto 4.8 % (1.0-6.0); Hematocrit 44.3 % (40.0-54.0); Hemoglobin 15.2 g/dL (14.0-18.0); Immature Granulocyte Absolute 0.02 K/mm3 (0.00-0.00); Immature Granulocyte Percent A 0.4 % (0.0-0.0); Lymphocytes Absolute Auto 1.34 K/mm3 (1.10-4.50); Lymphocytes Percent Auto 24.5 % (18.0-42.0); Mean Corpuscular HGB Conc 34.3 g/dL (32-36); Mean Corpuscular Hemoglobin 29.9 pg (27.0-31.0); Mean Corpuscular Volume 87.2 fL (78.0-102.0); Monocytes Absolute Auto 0.46 K/mm3 (0.10-0.90); Monocytes Percent Auto 8.4 % (2.0-11.0); Neutrophils Absolute Auto 3.36 K/mm3 (1.70-7.20); Neutrophils Percent Auto 61.5 % (50.0-70.0); Platelet Count Result 185 K/mm3 (150-420); Red Blood Count 5.08 M/mm3 (4.70-6.10); Red Cell Distribution Width 13.2 % (11.6-14.4); White Blood Count 5.5 K/mm3 (4.8-10.8)
[2024-09-25] MEDS: SODIUM CHLORIDE 0.9% IV 1,000 ML 999 ML IV CONT (05:51)
[2024-09-25] MEDS: ONDANSETRON INJ 4 MG/2 ML VIAL IV PUSH (05:51)
--- NOTE | 2024-09-25 05:58 | PC.NURSE ---
warm blankets given, call light in reach.
[2024-09-25 06:00] LABS: Alanine Aminotransferase 36 U/L (16-63); Albumin Level 3.8 g/dL (3.4-5.0); Alkaline Phosphatase 68 U/L (46-116); Anion Gap 6 mmol/L (4-12); Aspartate Amino Transferase 32 U/L (15-37); Bilirubin,Total 0.9 mg/dL (0.00-1.00); Blood Urea Nitrogen 9 mg/dL (7-18); Calcium 9.5 mg/dL (8.5-10.1); Carbon Dioxide 31 mmol/L (21-32); Chloride 105 mmol/L (98-108); Estimated CRCL calculation 87 ml/min; Estimated Glomerular Filt Rate > 60; Glucose 122 mg/dL (70-99); Lipase 33 U/L (16-77); Osmolality Calculated 293 mOsm/kg (285-295); Potassium 4.1 mmol/L (3.5-5.1); Sodium 142 mmol/L (136-145); Total Protein 7.3 g/dL (6.4-8.2); Troponin I 5.7 ng/L (0.00-60.4)
[2024-09-25 06:15] LABS: Partial Thromboplastin Time 26.6 Sec (23.9-30.70); Prothrombin Time 11.3 Seconds (9.50-12.1)
[2024-09-25] MEDS: MORPHINE SULFATE (*CRX) 2 MG/ML INJ IV PUSH (06:31)
--- NOTE | 2024-09-25 06:49 | PC.NURSE ---
patient was given a urinal for urine sample. at the bedside. patient currently on the phone. call light in reach.
--- NOTE | 2024-09-25 06:57 | PC.NURSE ---
patient reports that he still has abdominal pain and that he feels bloated. continue to wait on [facility] to return call for transfer.
[2024-09-25] MEDS: HYDROmorphone HCL INJ (*CRX) 2 MG/ML VIAL 0.5 MG IV PUSH ×2 (07:08→09:03)
[2024-09-25 09:26] LABS: Add Urine Microscopic? NO; Appearance Urine Clear (Clear); Bilirubin Urine Negative (Negative); Blood Urine Negative (Negative); Color Urine Light Yellow (Yellow); Glucose Urine UA Negative (Negative); Ketones Urine Negative (Negative); Leukocyte Esterase Ur Negative LEU/UL (Negative); Nitrate Urine Negative (Negative); Protein Urine Negative (Negative); Urobilinogen Urine 0.2 mg/dL (0.2-1.0); pH Urine 7.5 (5.0-8.0)
== END 2024-09-25 09:08 | disposition short-term general hospital (02) ==
PROVIDERS: Emergency Medicine; Emergency Provider Emergency Medicine; PCP Internal Medicine
DX: K56.609 Unspecified intestinal obstruction, unspecified as to partial versus complete obstruction (principal)
CPT/HCPCS: 36415; 71045; 74176; 80053; 81003; 83605; 83690; 84484; 85025; 85610; 85730; 93005; 96361; 96374; 96375; 96376; 99285; J1171; J2270; J2405; J7030

== ENCOUNTER 2024-09-25 10:33 | Inpatient (IN) | payer BC, SELFPAY ==
--- NOTE | ~2024-09-25 | XR_ITS ---
EXAMINATION: XR abdomen obstructive series DATE: 09/26/2024 08:02 INDICATION: Small bowel obstruction. TECHNIQUE: Upright and supine views of the abdomen on 3 radiographs were obtained. COMPARISON: CT abdomen and pelvis 09/25/2024 FINDINGS: There is dilated small bowel in the left upper quadrant. The colon is normal in caliber. No free intraperitoneal gas. The nasogastric tube tip is in the stomach. IMPRESSION: 1. Dilated small bowel, consistent with small bowel obstruction. Reviewed, dictated and finalized at location A. 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
--- NOTE | ~2024-09-25 | XR_ITS ---
EXAMINATION: XR sm bowel follow through DATE: 09/26/2024 11:20 INDICATION: Small bowel obstruction. TECHNIQUE: Oral contrast was administered, and a time course of radiographs of the abdomen was obtain ed. Fluoroscopy of the small bowel was not performed. Fluoroscopy exposure time was 0 minutes. The to husam number of images was 5. COMPARISON: CT abdomen and pelvis 09/25/2024 FINDINGS: No dilated loops of proximal small bowel. The distal small bowel is normal in caliber. The colon is n ormal in caliber. Transit time from the stomach to proximal colon was approximately 1 hour. IMPRESSION: 1. Dilated small bowel with normal transit time to the colon, consistent with adynamic ileus versus p artial small bowel obstruction. Reviewed, dictated and finalized at location A. STANT TO THE PRESIDENT IMPRESSION: 1. Dilated small bowel with normal transit time to the colon, consistent with a dynamic ileus versus partial small bowel obstruction.
--- NOTE | ~2024-09-25 | XR_ITS ---
XR abdomen gastric tube insert Ordering provider: Jefferson Michel DO History: . checking ng placement . Comparison: None. FINDINGS: BOWEL: Nasogastric tube is seen with the tip in the stomach. Nonobstructive bowel gas pattern. IMPRESSION: Nasogastric tube is seen with the tip in the stomach. Reviewed, dictated and finalized at location A. 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
--- NOTE | 2024-09-25 10:40 | P.HP_ITS ---
H&P: HPI History of Present Illness Date/Time: 09/25/24 10:40 Chief Complaint: Abdominal pain Narrative: This is a 64-year-old man who presented to [place] ED this morning with complaints of abdominal pain. He had a similar episode of pain in 2019 when he was admitted for possible small bowel obstruction versus ileus. This resolved with conservative measures and he did not have an NG tube placed during that a dmission. He has no history of abdominal surgery. He reports waking up yesterday feeling normal. He even went for a long run/walk for a total of 10 miles. In the afternoon, he developed some mild LUQ and epigastric abdominal pain. He tried taking Tylenol and Pepcid without relief. He had a normal BM earlier in the day. No recent diarrhea, nausea, or vomiting. Denies any sick close contacts. Throug hout the evening, his abdominal pain progressively became worse. He developed nausea and felt bloated. The pain felt similar to his previous episode in 2019. Without relief of symptoms, he decided to come into the ER this morning. Denies eating anything yesterday out of the ordinary that could have caused these symptoms. Workup in the ED showed CT evidence of a small bowel obstruction. Our service was contacted and he was directly admitted to [facility] for surgical evaluation and treatment of the small bowel obstruction. Prior to transfer, the patient reports having nausea and dry heaving, and his abdominal pain was getting worse. He had a second dose of Dilaudid and had Zofran. His abdominal pain was controlled after the second dose of the Dilaudid. No flatus since last night. No other complaints at this time. Review of Systems Review of Systems: All systems reviewed & are unremarkable except as noted in HPI and below PMFSH Past Medical History Medical History Closed fracture of left great toe Gastritis Family History Family History Mother Diabetes mellitus Hypertension Social History Social History Alcohol intake: unknown Drinks per week: 1 Substance use: current Substance use type: does not use Gender identity (if verbalized by the patient): Male Spiritual care concerns: No Agree to blood products: Yes Meds Home Medications and Allergies Home Medications Medication Instructions Recorded Confirmed Type No Home Medications 02/25/20 09/25/24 History Allergies Allergy/AdvReac Type Severity Reaction Status Date / Time Sulfa (Sulfonamide AdvReac Unknown Verified 03/17/21 08:17 Antibiotics) Exam Const: General: comfortable and no acute distress Nutritional Appearance: average body habitus Orientation/consciousness: patient oriented x3 HENMT: Head: normocephalic and atraumatic Ears: hearing grossly normal bilaterally Mouth: Yes moist mucous membranes Eyes: General: appearance normal, both eyes and all related structures Pupils: Equal, round and reactive pupils present Neck: Neck: normal visual inspection and full ROM Resp: Effort & Inspection: no respiratory distress Auscultation: clear to auscultation bilaterally Cardio: Rate: regular rate Rhythm: regular rhythm GI: Inspection: no scars and other (mildly distended) GI Palp: Yes Soft to palpation, Yes Tenderness to palpation present (GI) (tenderness across the upper abdomen), No Guarding due to palpation present (GI) and No Rebound tenderness present Percussion: Yes normal to percussion Auscultation: Hypoactive bowel sounds present Skin: General skin exam: normal color Neuro: General: moves all extremities and no focal motor deficits Speech: normal speech Motor exam (neuro): 5/5 motor strength present throughout Extrem: General: normal to inspection and no edema Psych: Mental Status: mental status grossly normal Attitude: cooperative Insight: Good insight present (Psych) Judgement: Good judgement present (Psych) H&P: Results Imaging CT scan - abdomen: Radiologist's impression: Non-contrast CT scan of the Abdomen and Pelvis Clinical indication: Abdominal pain Technique: 2.5 mm axial scans were obtained through the abdomen and pelvis without intravenous or oral contrast. Dose reduction technique was used on this scan by utilizing automated exposure control and iterative reconstruction technique. The dose-length product (DLP) was 839.38 mGy-cm. Findings: Images through the lung bases reveal no abnormalities. There is no evidence of renal or ureteral calculi. The kidneys and the ureters are nondilated. The liver, spleen, pancreas, gallbladder, and adrenals appear normal. There is no aortic aneurysm. Dilated proximal small bowel is a compatible obstruction. Distal small bowel loops are decompressed. Images through the pelvis were performed. There is no evidence of ascites or lymphadenopathy. Urinary bladder unremarkable. Prostate gland is enlarged. Impression: Small bowel obstruction. Assessment and Plan Assessment and plan (1) Small bowel obstruction: Code(s): K56.609 - Unspecified intestinal obstruction, unspecified as to partial versus complete obstruction Status: Acute Assessment and Plan: Patient presents with CT evidence of a small bowel obstruction. He had a similar episode in 2019 when he was admitted with a possible small bowel obstruction. He has no history of abdominal surgery that would suggest significant intraabdominal adhesions. Etiology not clear. He is still having some abdominal pain. No peritoneal signs on exam. We would recommend to treat this conservatively for now with NG tube decompression, bowel rest, and IV fluids. Will add IV analgesics as needed for pain. I have ordered an obstructive series for tomorrow morning. Will consider evaluating with a water-soluble small bowel follow through in the next 1-2 days depending on how he is progressing. Plan I have discussed the patient's case and plan of care with Dr. Michel.
[2024-09-25] MEDS: FAMOTIDINE 20 MG/2 ML VIAL IV PUSH ×2 (11:21→20:49)
[2024-09-25] MEDS: SODIUM CHLORIDE 0.9% IV 1,000 ML 125 ML IV CONT ×2 (11:21→19:27)
[2024-09-25 11:26] VITALS: BMI 31.5
--- NOTE | 2024-09-25 11:28 | ADMGEN ---
This patient, Yenifer Domínguez, was admitted to [facility] Room 300-01. Patient/family oriented to hospital policies and general routines including ID bracelet, bed and alarms, visiting hours, pain management, procedures, bathroom and other care routines, personal items, smoking policy, room service/diet, and visiting hours. Information on how to activate the Rapid Response Team has been discussed. Patient/Family are encouraged to report perceived risks to care and to ask questions if they do not understand what they are told or what they should do.
[2024-09-25 14:00] VITALS: BP 123/87; PULSE 52; RESP 18; TEMP 36.5; O2SAT 100
[2024-09-25 21:10] VITALS: BP 141/73; PULSE 57; RESP 16; TEMP 36.9; O2SAT 96
--- NOTE | 2024-09-26 03:46 | PC.NURSE ---
patient states that his pain is starting to come back and he thinks his abdomen is becoming distended again. Pt requested that this RN flush NG tube, so I did, then changed the settings to continuous suction for a moment to clear the line. the liquid in the suction tubing appears to be very thick and mucus-like. settings changed back to low intermittent suction.
[2024-09-26] MEDS: SODIUM CHLORIDE 0.9% IV 1,000 ML 125 ML IV CONT (03:50)
[2024-09-26 06:00] VITALS: BP 143/81; PULSE 61; RESP 18; TEMP 37.2; O2SAT 96
[2024-09-26 06:27] LABS: Hematocrit 40.8 % (42.0-52.0); Hemoglobin 13.3 g/dL (14.0-18.0); Mean Corpuscular HGB Conc 32.6 g/dl (32-36); Mean Corpuscular Hemoglobin 29.7 pg (26-34); Mean Corpuscular Volume 91.1 fl (80-100); Mean Platelet Volume 9.7 fl (7.4-10.4); Platelet Count Result 166 k/mm3 (150-375); Red Blood Count 4.48 M/mm3 (4.6-6.20); Red Cell Distribution Width 13.4 % (11.5-14.5)
[2024-09-26 06:37] LABS: Anion Gap 6 mmol/L (4-12); Blood Urea Nitrogen 6 mg/dL (9-20); Calcium 8.4 mg/dL (8.4-10.2); Carbon Dioxide 28 mmol/L (22-30); Chloride 105 mmol/L (98-107); Estimated CRCL calculation 115 ml/min; Estimated Glomerular Filt Rate > 60; Glucose 91 mg/dL (65-110); Sodium 139 mmol/L (137-145)
[2024-09-26] MEDS: FAMOTIDINE 20 MG/2 ML VIAL IV PUSH ×2 (08:06→20:52)
--- NOTE | 2024-09-26 08:30 | P.PNGS_ITS ---
Progress Note: A&P Assessment and Plan (1) Small bowel obstruction, partial: Code(s): K56.600 - Partial intestinal obstruction, unspecified as to cause Status: Acute Assessment and Plan: * Obstructive series pending this AM. I viewed the images and there appears to be one gas filled loop of small bowel in the LUQ. Will plan to get Gastrografin SBFT today. Await results. Subjective Subjective Date/Time Seen: 09/26/24 08:30 Interval history: Passing some flatus, no BM. Had some distention overnight, but tube was flushed and then he felt a little better. Still having mild LUQ pain but not bad enough to require pain meds. Exam GI: Inspection: non-distended GI Palp: Yes Soft to palpation, No Tenderness to palpation present (GI), No Guarding due to palpation present (GI) and No Rebound tenderness present Percussion: Yes normal to percussion Objective Data Vital Signs Vital Signs: Vital Signs - 24 hr 09/25/24 11:37 09/25/24 14:00 09/25/24 19:30 Temperature 97.7 F Pulse Rate 52 L Respiratory Rate 18 Blood Pressure 123/87 Pulse Oximetry 100 Oxygen Delivery Room Air Room Air 09/25/24 21:10 09/26/24 06:00 Temperature 98.4 F 98.9 F Pulse Rate 57 L 61 Respiratory Rate 16 18 Blood Pressure 141/73 H 143/81 H Pulse Oximetry 96 96 Oxygen Delivery Intake/Output Intake/Output: Intake & Output 09/24/24 09/24/24 09/25/24 09/26/24 00:59 23:59 23:59 23:59 Intake Total 1000 1000 Output Total 550 1050 Balance 450 -50 Meds/Results Medications: Active Medications Generic Name Dose Route Start Last Admin Trade Name Freq PRN Reason Stop Dose Admin Famotidine 20 mg 09/25/24 10:40 09/26/24 08:06 Famotidine 20 Mg/2 Ml Vial IV PUSH 20 mg Q12HR LILIA Administration Hydromorphone HCl 0.5 mg 09/25/24 10:30 Hydromorphone Hcl Inj (*Crx) 1 Mg/Ml Syr IV PUSH Q2H PRN Pain Rated 7-10 Sodium Chloride 1,000 mls @ 125 mls/hr 09/25/24 10:30 09/26/24 03:50 Normal Saline Iv IV CONT 125 mls/hr .Q8H LILIA Administration Ondansetron HCl 4 mg 09/25/24 10:30 Ondansetron Inj 4 Mg/2 Ml Vial IV PUSH Q6H PRN Nausea And Vomiting Labs Labs: Laboratory Results - last 24 hr 09/26/24 05:38 WBC 4.0 L RBC 4.48 L Hgb 13.3 L Hct 40.8 L MCV 91.1 MCH 29.7 MCHC 32.6 RDW 13.4 Plt Count 166 MPV 9.7 Sodium 139 Potassium 4.0 Chloride 105 Carbon Dioxide 28 Anion Gap 6 BUN 6 L Creatinine 0.70 Estim Creat Clear Calc 115 Estimated GFR > 60 Glucose 91 Calcium 8.4
[2024-09-26 14:00] VITALS: BP 128/78; PULSE 68; RESP 20; TEMP 36.4; O2SAT 100
[2024-09-26 21:54] VITALS: BP 124/76; PULSE 58; RESP 18; TEMP 36.5; O2SAT 100
[2024-09-27 05:55] VITALS: BP 116/67; PULSE 58; RESP 18; TEMP 36.5; O2SAT 99
[2024-09-27] MEDS: FAMOTIDINE 20 MG/2 ML VIAL IV PUSH (08:36)
--- NOTE | 2024-09-27 08:59 | P.DS_ITS ---
DS: Admitting Diagnosis Discharge Date 09/27/2024 Admitting Diagnosis Small-bowel obstruction DS: Discharge Diagnosis Discharge Diagnosis (1) Small bowel obstruction, partial: Code(s): K56.600 - Partial intestinal obstruction, unspecified as to cause Status: Acute DS: Summary Hospital Course Reason for hospitalization: This is a 64-year-old man who presented to [place] ED with complaints of abdominal pain. Workup showed CT evidence of a small-bowel obstruction. No previous abdominal surgeries. He was transferred and directly admitted to [facility] for surgical evaluation. Hospital Course: He was treated with NG tube decompression and bowel rest. He was started on IV fluids while his diet was limited. He was monitored with serial abdominal x- rays that continued to show a small-bowel obstruction. This was further evaluated with a water-soluble small-bowel follow-through. The contrast moved through to the colon in 1 hour and suggested a partial small bowel obstruction. His NG tube was removed and he was started on a clear liquid diet. Bowel function returned and his diet was advanced as tolerated. He is tolerating a low-fiber diet this morning. No nausea or vomiting. His abdominal pain has significantly improved with still some mild soreness in the left upper quadrant. He is stable for discharge today with recommendations to continue a low residue diet for another 1-2 weeks. Status at Discharge Functional status at discharge: independent ambulation Overall status at discharge: patient is progressing back to baseline Time Spent with Patient Time attestation: Total time spent providing and/or coordinating discharge services: Time spent: Less than 30 minutes Exam Const: General: comfortable and no acute distress GI: Inspection: non-distended GI Palp: Yes Soft to palpation (much softer), Yes Tenderness to palpation present (GI) (mild TTP in LUQ, improved), No Guarding due to palpation present (GI) and No Rebound tenderness present Auscultation: normal bowel sounds DS: Data Imaging Radiologist's impression: ITS Impressions Abdomen X-Ray 09/25/24 11:12 IMPRESSION: Nasogastric tube is seen with the tip in the stomach. Abdomen X-Ray 09/26/24 08:06 IMPRESSION: 1. Dilated small bowel, consistent with small bowel obstruction. Small Bowel X-Ray 09/26/24 11:27 IMPRESSION: 1. Dilated small bowel with normal transit time to the colon, consistent with adynamic ileus versus partial small bowel obstruction. Discharge Plan Discharge Attending physician on discharge: Jefferson Michel Discharging Clinician: Tiffanie Epps Anticipated Discharge Date/Time: 09/27/24 09:05 Patient Disposition: Home, Self-Care Activity: as tolerated Diet: low fiber Discharge Instructions: * Continue with a low residue diet for the next 1-2 weeks. Advanced diet as tolerated at that point. * If you have any recurrent obstructive symptoms, such as abdominal pain, nausea, or vomiting, return to the ER or call our office. [phone] * We will plan to set you up for an EGD and colonoscopy after you have recovered from the obstruction. Patient Instructions: Antibiotic Form Stand Alone Forms: General Discharge Information Follow-up/Referrals: Mynor Marroquin MD [Primary Care Provider] - Keep Reg. Scheduled Appt. Discharge Medications: No Action No Home Medications Date of admission: 09/25/24 11:23 Primary Care Provider: Mynor Marroquin Admitting Provider: Jefferson Michel Attending physician on admission: Jefferson Michel Condition: Stable Quality VTE Prophylaxis VTE prophylaxis: mechanical ordered If No VTE Prophylaxis Answer both mechanical and pharmacologic: Reason no pharmacologic proph: low risk/not indicated
== END 2024-09-27 10:57 | disposition home or self-care (01) | DRG 390 ==
PROVIDERS: Admitting Provider Surgery; PCP Internal Medicine; Visit Provider Nurse Practitioner Family
DX: K56.609 Unspecified intestinal obstruction, unspecified as to partial versus complete obstruction (principal)
CPT/HCPCS: 36415; 74019; 74250; 80048; 85027; G0378; G0379; J7030